=== PATIENT | female | born 1985 | race Two or more races ===

== ENCOUNTER 2020-10-17 05:02 | Emergency (ER) | payer OTHER ==
[2020-10-17 05:24] VITALS: TEMP 98.7; BMI 27.4
[2020-10-17] MEDS ORDERED: ACETAMINOPHEN 325 MG TABLET (FP) PO ONE (05:45)
[2020-10-17] MEDS ORDERED: METOCLOPRAMIDE HCL INJECTION 10 MG/2 ML VIAL IVPB ONE (05:45)
[2020-10-17] MEDS ORDERED: METOCLOPRAMIDE HCL INJECTION 10 MG/2 ML VIAL IM ONE (05:45)
[2020-10-17] MEDS ORDERED: ACETAMINOPHEN 1000 MG/100 ML VIAL (NON FORMULARY) IVPB ONE (05:53)
[2020-10-17 06:26] LABS: BASO % 0.5 % (0-2.0); EOS % 3.1 % (0-4.5); HEMOGLOBIN 12.5 GM/dL (10.7-15.3); LYMPH % 38.5 % (8-40); MCH 29.9 pg (25.7-33.7); MEAN CELL VOLUME 90.5 fl (80-96); MEAN PLT VOLUME 9.7 fl (7.5-11.1); MONO % 9.2 % (3.8-10.2); NEUT % 48.7 % (42.8-82.8); PLATELET COUNT 250 10^3/uL (134-434); RBC 4.19 M/mm3 (3.60-5.2); RDW 14.2 % (11.6-15.6); WHITE BLOOD COUNT 5.5 K/mm3 (4.0-10.0)
[2020-10-17 06:41] LABS: CALCIUM 8.4 mg/dL (8.5-10.1)
[2020-10-17 06:42] LABS: BLOOD UREA NITROGEN 13.9 mg/dL (7-18)
[2020-10-17 06:45] LABS: CREATININE 0.9 mg/dL (0.55-1.3)
[2020-10-17 07:51] LABS: BLOOD UREA NITROGEN 13.1 mg/dL (7-18); CALCIUM 8.4 mg/dL (8.5-10.1)
[2020-10-17 07:54] LABS: CREATININE 0.9 mg/dL (0.55-1.3)
[2020-10-17 13:07] VITALS: BP 100/70; PULSE 72
== END 2020-10-17 13:50 | disposition home or self-care (01) ==
LOC: JER 05:02 → EDBD 05:02 → JER 13:50
PROC: 3E023NZ Introduction of Analgesics, Hypnotics, Sedatives into Muscle, Percutaneous Approach (ICD-10-PCS; principal; 2020-10-17)
PROC: 3E033GC Introduction of Other Therapeutic Substance into Peripheral Vein, Percutaneous Approach (ICD-10-PCS; 2020-10-17)
PROC: 3E033GC Introduction of Other Therapeutic Substance into Peripheral Vein, Percutaneous Approach (ICD-10-PCS; 2020-10-17)
DX: R51.9 Headache, unspecified (principal)
CPT/HCPCS: 36415; 70450-TC; 80048; 85025; 93005; 93010; 99285-25; J0131